=== PATIENT | male | born 1975 ===

== ENCOUNTER 2022-01-14 14:41 | Emergency (ER) | payer OTHER ==
[~2022-01-14] VITALS: Ht 175.3 cm; Wt 81.8 kg
[2022-01-14] MEDS ORDERED: INSU100V37 SQ (15:12)
[2022-01-14] MEDS ORDERED: LOSA-382 PO (15:12)
[2022-01-14 16:00] VITALS: BP 152/87
== END 2022-01-14 16:42 | disposition home or self-care (01) ==
LOC: EMS 14:48
DX: S39.92XA Unspecified injury of lower back, initial encounter (principal); E11.9 Type 2 diabetes mellitus without complications; F10.20 Alcohol dependence, uncomplicated; I10 Essential (primary) hypertension; W01.0XXA Fall on same level from slipping, tripping and stumbling without subsequent striking against object, initial encounter; Y93.89 Activity, other specified; Y92.89 Other specified places as the place of occurrence of the external cause; Y99.0 Civilian activity done for income or pay
CPT/HCPCS: 72100; 82962; 99283